=== PATIENT | male | born 1980 | race Caucasian/White ===

== ENCOUNTER 2023-12-23 10:50 | Outpatient (OUT) | payer MEDICARE, MEDICAID, SELFPAY ==
[2023-12-23 11:54] LABS: Basophils Percent Auto 0.4 % (0.2-2.0); Eosinophils Percent Auto 0.4 % (0.9-7.0); Hemoglobin 15.7 g/dL (14.0-18.0); Immature Granulocytes Abs Auto 0.05 10^3/uL (0.00-0.03); Immature Granulocytes Pct Auto 0.6 % (0.0-0.5); Lymphocytes Absolute Auto 2.1 10^3/uL (1.2-3.8); Lymphocytes Percent Auto 25.9 % (20.5-60.0); Mean Corpuscular HGB Conc 34.9 g/dL (29.9-35.2); Mean Corpuscular Hemoglobin 30.5 pg (25.9-34.0); Mean Corpuscular Volume 87.5 fL (80.0-94.0); Mean Platelet Volume 10.5 fL (9.5-13.5); Monocytes Absolute Auto 0.4 10^3/uL (0.3-0.8); Monocytes Percent Auto 5.3 % (1.7-12.0); Neutrophils Absolute Auto 5.4 10^3/uL (1.4-6.5); Neutrophils Percent Auto 67.4 % (43.0-75.0); Platelet Count 143 10^3/uL (150-450); Red Blood Count 5.14 10^6/uL (4.70-6.10); Red Cell Distribution Width 12.1 % (11.0-15.0); White Blood Count 8.1 10^3/uL (4.0-11.0)
[2023-12-23 11:58] LABS: Estimated Average Glucose 235 mg/dL; Glycohemoglobin A1C 9.8 % (4.5-6.2)
[2023-12-23 12:24] LABS: Alanine Aminotransferase 19 U/L (16-63); Albumin Globulin Ratio 0.9; Albumin Level 3.2 g/dL (3.4-5.0); Alkaline Phosphatase 75 U/L (46-116); Aspartate Amino Transferase 14 U/L (15-37); Bilirubin Direct 0.1 mg/dL (0.0-0.2); Bilirubin Total 0.4 mg/dL (0.2-1.0); Chol HDL Ratio 4.8; Cholesterol 181 mg/dL (<=200); Globulin 3.5 g/dL; Glucose 312 mg/dL (74-106); HDL Cholesterol 38 mg/dL (40-60); Thyroid Stimulating Hormone 1.668 uIU/mL (0.358-3.740); Total Protein 6.7 g/dL (6.4-8.2); Triglycerides 356 mg/dL (<=150); VLDL CHOLESTEROL 71.2 mg/dL
[2023-12-24 13:13] LABS: Carbamazepine(Tegretol),S 8.2 ug/mL (4.0-12.0)
== END 2023-12-23 10:51 | disposition home or self-care (01) ==
PROVIDERS: PCP Family Medicine; Visit Provider Psychiatry & Neurology Psychiatry
DX: F31.9 Bipolar disorder, unspecified (principal); Z79.899 Other long term (current) drug therapy
CPT/HCPCS: 36415; 80061; 80076; 80156; 82947; 83036; 84443; 85025

== ENCOUNTER 2024-12-31 12:09 | Outpatient (OUT) | payer MEDICARE, MEDICAID, SELFPAY ==
--- OUTSIDE RECORDS SUMMARY | 2024-12-31 12:14 | XMS_ITS | Encounter Summary ---
Author Organization [facility] Address [address] [place] [address] Care Team Providers Care Canopy Stringer Name Role Phone Fide Huang MD Primary Care Provider [phone] Fide Huang MD Primary Care Provider [phone] Encounter Details Date Type Department Care Team (Late st Contact Info) Description 09/10/2024 Abstract [facility] [address] [place] [address] Elizabeth Moran, DO [address] [address] Social History Tobacco Use Types Packs/Day Years Used Date Smoking Tobacco: Former Cigarettes Q uit: 2008 Smokeless Tobacco: Never Alcohol Use Standard Drinks/Week Comments Not Currently 0 (1 standard drink = 0.6 oz pur e alcohol) Caffine: 6 sodas Humiliation, Afraid, Rape, and Kick questionnair e Answer Date Recorded Within the last year, have y ou been afraid of your partner or ex-partner? No 02/27/2023 Within the last year, have y ou been humiliated or emotionally abused in other ways by your partner or ex-partner? No Within the last year, have y ou been kicked, hit, slapped, or otherwise physically hurt by your partner or ex-partner? No 02/27/2023 Within the last year, have y ou been raped or forced to have any kind of sexual activity by your partner or ex-partner? No 02/27/2023 Social Connection and Isolat ion Panel [NHANES] Answer Date Recorded In a typical week, how many times do you talk on the phone with family, friends, or neighbors? More than three times a week 02/27/2023 How often do you get togethe r with friends or relatives? More than three times a week 02/27/2023 How often do you attend chur ch or episcopalian services? Patient declined 02/27/2023 Do you belong to any clubs o r organizations such as evangelical groups, unions, fraternal or athletic groups, or school groups? No 02/27/2023 How often do you attend meet ings of the clubs or organizations you belong to? Never 02/27/2023 Are you , , di vorced, , never , or living with a partner? Living with partner 02/27/2023 AUDIT-C Answer Date Recorded Q1: How often do you have a drink containing alcohol? Never 02/27/2023 Q2: How many drinks containi ng alcohol do you have on a typical day when you are drinking? Patient does not drink Q3: How often do you have si x or more drinks on one occasion? Never 02/27/2023 Overall Financial Resource Strain (CARDIA) Answe r Date Recorded How hard is it for you to pa y for the very basics like food, housing, medical care, and heating? Not hard at all 02/27/2023 PHQ-2 Answer Date Recorded Patient Health Questionnaire-2 Score 0 09/10/2024 [facility] Questionnaire Answer Date Recorded Do you feel stress - tense, restless, nervous, or anxious, or unable to sleep at night because your mind is troubled all the time - these days? Not at all 02/27/2023 Exercise Vital Sign Answer Date Recorde d On average, how many days pe r week do you engage in moderate to strenuous exercise (like a brisk walk)? 2 days 02/27/2023 On average, how many minutes do you engage in exercise at this level? 20 min 02/27/2023 Hunger Vital Sign Answer Date Recorded Within the past 12 months, y ou worried that your food would run out before you got the money to buy more. Never true 02/28/20 23 Within the past 12 months, t he food you bought just didn't last and you didn't have money to get more. Never true 02/27/2023 PRAPARE - Transportation Answer Date Re corded In the past 12 months, has l ack of transportation kept you from medical appointments or from getting medications? No 02/14 In the past 12 months, has l ack of transportation kept you from meetings, work, or from getting things needed for daily living? No 02/27/2023 Housing Stability Vital Sign Answer Dionicio e Recorded In the last 12 months, was t here a time when you were not able to pay the mortgage or rent on time? No 02/27/2023 In the last 12 months, how many places have you lived? 1 02/27/2023 In the last 12 months, was t here a time when you did not have a steady place to sleep or slept in a fci (including now)? No 02/27/2023 Sex and Gender Information Value Date Recorded Sex Assigned at Not on file Legal Sex Male 6:42 PM EDT Gender Identity Not on file Sexual Orientation Not on file documented as of this encounter Functional Status * Over the past 2 weeks, how often have you been bothered by any of the following problems? Question Answer Date of Assessment Author Little interest or pleasure in doing things Not at all 09/10/2024 2:42 PM EDT Fide Cedillo LPN Feeling down, depressed, or hopeless Not at all 09/10/2024 2:42 PM EDT Fide Cedillo LPN Patient Health Questionnaire-2 Score 0 09/10/2024 2:42 PM EDT Arian Cedillo LPN documented as of this encounter Plan of Treatment Upcoming Encounters Date Type Department Care Team (Late st Contact Info) Description 02/02/2025 1:00 PM EDT Procedure Visit [facility] [address] [place] [phone] Ilya Saucedo, DPM [address] [place], [place] [id number] 04/08/2025 1:15 PM EDT Office Visit [facility] [address] [place] [address] Elizabeth Moran, DO [address] [facility] [address] [place] [address] documented as of this encounter Visit Diagnoses Not on filedocumented in this encounter Additional Health Concerns Assessment Noted Time PHQ-9 Depression Total Score: 2 10/03/19 24 10:00 AM EDT documented as of this encounter Care Teams Canopy Stringer Relationship Specialty Start Date End Date Fide Huang MD [address] [place], [place] [id number] PCP - General Family Medicine 10/22/22 11/09/24 Fide Huang MD [address], [place] [address] PCP - General Family Medicine 11/10/24 documented as of this encounter
--- OUTSIDE RECORDS SUMMARY | 2024-12-31 12:14 | XMS_ITS | Encounter Summary ---
Author Organization [facility] Address [address] [place] [address] Care Team Providers Care Microstrategy Reports Developer Name Role Phone Fide Huang MD Unavailable [phone] Fide Huang MD Primary Care Provider [phone] Fide Huang MD Unavailable [phone] Fide Huang MD Primary Care Provider Reason for Visit * Reason Comments Med Refill Encounter Details Date Type Department Care Team (Late st Contact Info) Description 03/23/2023 Refill [facility] [address] [place] [address] Jailyn España, [employer] [address] [address] Social History Tobacco Use Types Packs/Day Years Used Date Smoking Tobacco: Former Cigarettes Q uit: 2008 Smokeless Tobacco: Never Alcohol Use Standard Drinks/Week Comments Not Currently 0 (1 standard drink = 0.6 oz pur e alcohol) Humiliation, Afraid, Rape, and Kick questionnair e [...] 02/27/2023 How often do you attend chur or jewish services? Patient declined 02/27/2023 Do you belong to any clubs o r organizations such as restorationist groups, unions, fraternal or athletic groups, or [...] Date Recorded Patient Health Questionnaire-2 Score 0 03/06/2023 [facility] - Occupational Stress Questionnaire Answer Date Recorded [...] place to sleep or slept in a halfway (including now)? No 02/27/2023 Sex and Gender Information Value Date Recorded Sex Assigned at Not on file Legal Sex Male 6:42 PM EDT Gender Identity Not on file Sexual Orientation Not on file COVID-19 Exposure Response Date Recorded In the last 10 days, have yo u been in contact with someone who was confirmed or suspected to have Coronavirus/COVID-19? No / Unsure 02/27/2023 1:45 PM EDT documented as of this encounter Plan of Treatment Upcoming Encounters Date Type Department Care Team (Late st Contact Info) Description 02/02/2025 1:00 PM EDT Procedure Visit [facility] [address] [place] [address] Ilya Saucedo DPM [address] [place] [address] 04/08/2025 1:15 PM EDT Office Visit [facility] [address] [place] [address] Elizabeth Moran, [address] [place] [address] documented as of this encounter Visit Diagnoses Not on filedocumented in this encounter Care Teams Microstrategy Reports Developer Relationship Specialty Start Date End Date Fide Huang MD [address] [facility] [place] [address] [facility] 08/20/24 Fide Huang MD [address] [facility] [place] [address] PCP - General Family Medicine 10/22/22 11/09/24 Fide Huang MD [address] [facility] [place], [place] [id number] PCP - [facility] 06/16/24 08/13/24 Fide Huang MD [address] [facility] [place] [id number] PCP - General Family Medicine 11/10/24 documented as of this encounter
--- OUTSIDE RECORDS SUMMARY | 2024-12-31 12:14 | XMS_ITS | Encounter Summary ---
Author Organization [facility] Address [address] [place] [address] Care Team Providers Care Porcelain Slusher Name Role Phone Fide Huang MD Unavailable [phone] Fide Huang MD Primary Care Provider [phone] Fide Huang MD Unavailable [phone] Fide Huang MD Primary Care Provider [phone] Encounter Details Date Type Department Care Team (Late st Contact Info) Description 09/15/2023 Orders Only [facility] [address] [facility] [address] [place] [address] Elizabeth Moran DO [address] [facility] [address] [place] [address] Social History Tobacco Use Types Packs/Day Years [...] week 02/27/2023 How often do you attend [facility] or anabaptism services? Patient declined 02/27/2023 Do you belong to any clubs o r organizations such as gnosticist groups, unions, fraternal or athletic groups, or [...] Answer Date Recorded Patient Health Questionnaire-2 Score 1 04/11/2023 [facility] - Occupational Stress [...] place to sleep or slept in a penitentiary (including now)? No 02/27/2023 Sex and Gender Information Value Date Recorded Sex Assigned at Not on file Legal Sex Male 6:42 PM EDT Gender Identity Not on file Sexual Orientation Not on file documented as of this encounter Plan of Treatment Upcoming Encounters Date Type Department Care Team (Late st Contact Info) Description 02/02/2025 1:00 PM EDT Procedure Visit [facility] [address] [place] [phone] Ilya Saucedo, DPM [address] [place] [address] 04/08/2025 1:15 PM EDT Office Visit [facility] [address] [place] [address] Elizabeth oMran, [address] [place] [address] documented as of this encounter Procedures Procedure Name Priority Date/Time Associated Diagnosis Comments DIABETIC RETINOPATHY SCREENING - OU - BOTH EYES Routine 09/12/2023 1:24 PM EDT documented in this encounter Results * (ABNORMAL) Diabetic Retinopathy Screening - OU - Both Eyes (09/12/2023 1:24 PM EDT) Anatomical Region Laterality Modality Head Other us Elizabeth Moran DO OPHTH PHOTOGRAPHY Final Re sult documented in this encounter Visit Diagnoses Not on filedocumented in this encounter Additional Health Concerns Assessment Noted Time PHQ-9 Depression Total Score: 4 04/11/20 23 12:57 PM EDT documented as of this encounter Care Teams Porcelain Slusher Relationship Specialty Start Date End Date Fide Huang MD [address] [facility] [place] [address] PCP - [facility] 07/17/22 08/20/24 Fide Huang MD [address] [facility] [place] [address] PCP - General Family Medicine 10/22/22 11/09/24 Fide Huang MD [address] [facility] [place] [address] PCP - [facility] 06/16/24 08/13/24 Fide Huang MD [address] [facility] [place] [address] PCP - General Family Medicine 11/10/24 documented as of this encounter
--- OUTSIDE RECORDS SUMMARY | 2024-12-31 12:14 | XMS_ITS | Encounter Summary ---
Author Organization [facility] Address [address] [place] [address] Care Team Providers Care Hog Man Name Role Phone Fide Huang MD Unavailable [phone] Fide Huang MD Primary Care Provider [phone] Fide Huang MD Unavailable [phone] Fide Huang MD Primary Care Provider [phone] Reason for Visit * Reason Comments Med Refill Encounter Details Date Type Department Care Team (Late st Contact Info) Description 04/01/2024 Refill [facility] [address] [facility] 230 [place] [address] Elizabeth Moran, [address] [facility] [address] [place] [address] Type 2 diabetes mellitus with diabetic autonomic neuropathy, with long-term current use of insulin ([facility]) Social History Tobacco Use Types Packs/Day Years Used Date Smoking Tobacco: Former Cigarettes Q uit: 2007 Smokeless Tobacco: Never Alcohol Use Standard Drinks/Week [...] How often do you attend chur or episcopal services? Patient declined 02/27/2023 Do you belong to any clubs o r organizations such as pentecostalism groups, unions, fraSecond Sight or athletic groups, or school groups? No [...] Date Recorded Patient Health Questionnaire-2 Score 0 03/12/2024 [facility] Occupat ional Health - Occupational Stress [...] place to sleep or slept in a usp (including now)? No 02/27/2023 Sex and Gender Information Value Date Recorded Sex Assigned at Not on file Legal Sex Male 6:42 PM EDT Gender Identity Not on file Sexual Orientation Not on file documented as of this encounter Plan of Treatment Upcoming Encounters Date Type Department Care Team (Late st Contact Info) Description 02/02/2025 1:00 PM EDT Procedure Visit [facility] [address] [place] [phone] Ilya Saucedo, MECCA [address] [place] [address] 04/08/2025 1:15 PM EDT Office Visit [facility] [address] [place] [address] Elizabeth Moran DO [address] [place] [address] documented as of this encounter Visit Diagnoses Diagnosis Type 2 diabetes mellitus with diabetic autonomic neuropathy, with long-term current use of insulin (HCC) documented in this encounter Additional Health Concerns Assessment Noted Time PHQ-9 Depression Total Score: 2 10/03/19 24 10:00 AM EDT documented as of this encounter Care Teams Hog Man Relationship Specialty Start Date End Date Fide Huang MD [address] [facility] [place] [address] PCP - [facility] 07/17/22 08/20/24 Fide Huang MD [address] [facility] [place] [address] PCP - General Family Medicine 10/22/22 11/09/24 Fide Huang MD [address] [facility] [place] [address] PCP - [facility] 06/16/24 08/13/24 Fide Huang MD [address] [facility] [place] [address] PCP - General Family Medicine 11/10/24 documented as of this encounter
--- OUTSIDE RECORDS SUMMARY | 2024-12-31 12:14 | XMS_ITS | Clinical Summary ---
Author Organization [facility] Address [id number] [address] [place] [address] Care Team Providers Care Fiscal Clerk Name Role Phone Fide Huang MD Primary Care Provider [phone] Allergies Active Allergy Reactions Criticality Noted Date Comments Amoxicillin Rash Low 01/25/2019 Metformin Diarrhea 03/06/2023 Medications busPIRone (BUSPAR) 15 mg tablet Take 1 tablet (15 mg total) by mouth in the morning and 1 tablet (15 mg total) before bedtime. Active carBAMazepine (TEGretol) 200 mg tablet Take 1 tablet (200 mg total) by mouth in the morning and 1 tablet (200 mg total) before bedtime. Active citalopram (CeleXA) 40 mg tablet Take 1 tablet (40 mg total) by mouth in the morning. Active fenofibrate (LOFIBRA) 160 mg tablet Take 1 tablet (160 mg total) by mouth in the morning. Active HumuLIN R U-500, Conc, Kwikpen injection INJECT 170 UNITS SUBCUTANEOUSLY WITH BREAKFAST and 80 UNITS WITH dinner Active lisinopril-hy droCHLOROthia zide (PRINZIDE,ZES TORETIC) 20-12.5 mg per tablet Take 1 tablet by mouth in the morning. Active metoprolol tartrate (LOPRESSOR) 50 mg tablet Take 1 tablet (50 mg total) by mouth in the morning and 1 tablet (50 mg total) before bedtime. Active risperiDONE (RisperDAL) 4 mg tablet Take 1 tablet (4 mg total) by mouth. Active OZEMPIC 1 mg/dose (4 mg/3 mL) pen injector INJECT 1 mg SUBCUTANEOUSLY ONCE A WEEK Active OZEMPIC 2 mg/dose (8 mg/3 mL) pen injector Inject 2 mg under the skin. Active simvastatin (ZOCOR) 40 mg tablet Take 1 tablet (40 mg total) by mouth. Active tadalafiL (CIALIS) 10 MG tablet Take 1 tablet (10 mg total) by mouth as needed. 023 Active traZODone (DESYREL) 100 mg tablet Take 2 tablets (200 mg total) by mouth. Active desmopressin (DDAVP) 0.2 mg tablet Take 3 tablets (600 mcg total) by mouth nightly. 90 tablet 025 Active desmopressin (DDAVP) 0.2 mg tablet TAKE 3 TABLETS BY MOUTH IN THE MORNING 90 tablet 025 2024 Discontinued(R eorder) desmopressin (DDAVP) 0.2 mg tablet Take 1 tablet (200 mcg total) by mouth nightly. TAKE 3 TABLETS BY MOUTH IN THE MORNING 90 tablet 025 2024 Discontinued Active Problems Problem Noted Date Diagnosed Date Nocturnal enuresis 11/26/2023 Overview (11/26/2023): 12/19/15: lifelong nocturnal enuresis. Successfully treated with DDAVP 0.6 mg. Refill given. He is planning to get further refills in the future with Dr Huang. If he has worsened urinary symptoms I would be happy to see him again 11/26/23: Symptoms stable with DDAVP 0.6mg. Sodium stable. Assessment & Plan (11/26/2023 2:43 PM EDT): His PCP would like us to manage his refills. We will see him back in 1 year or sooner if any problems Encounters Date Type Department Care Team Description 12/14/2024 Refill [facility] [address] [place] [address] Trae Sanchez MD 12/14/2024 Orders Only [facility] [address] [place] [address] Trae Sanchez MD 12/14/2024 Telephone [facility] [address] [place] [address] Trae Sanchez MD 11/29/2024 Refill [facility] [address] [address] [place] [address] Debora Olivas PA from Last 3 Months Family History Relation Name Status Comments Brother Alive Father Alive Mother Alive Social History Tobacco Use Types Packs/Day Years Used Date Smoking Tobacco: Former Cigarettes Q uit: 2007 Tobacco Cessation:Counseling Given: No Alcohol Use Standard Drinks/Week Comments Defer 0 (1 standard drink = 0.6 oz pur e alcohol) Childcare Answer Date Recorded Childcare Unknown 11/25/2018 Employment Answer Date Recorded Employment Unknown 11/25/2018 Hunger Screening Answer Date Recorded Within the past 12 months we worried whether our food would run out before we got money to buy more. Never True 11/26/2023 Within the past 12 months th e food we bought just didn't last and we didn't have money to get more. Never True 11/26/2023 Purpose - Life Answer Date Recorded Purpose and direction in life Unknown Sex and Gender Information Value Date Recorded Sex Assigned at Not on file Legal Sex Male 11:39 AM EDT Gender Identity Not on file Sexual Orientation Not on file Last Filed Vital Signs Vital Sign Reading Time Taken Comments Blood Pressure 112/71 11/26/2023 2:21 PM EDT Pulse 69 11/26/2023 2:21 PM EDT Temperature - - Respiratory Rate - - Oxygen Saturation - - Inhaled Oxygen Concentration - - Weight 181.9 kg (401 lb) 11/26/2023 2:21 PM EDT Height 182.9 cm (6') 11/26/2023 2:21 PM EDT Body Mass Index 54.39 11/26/2023 2:21 PM EDT Plan of Treatment Health Maintenance Due Date Last Done Comments Depression Screening 1990 Adult BMI Screening 11/25/2024 11/26/2023 Tobacco Screening 11/25/2024 11/26/2023 Influenza Vaccine 02/14/2025 04/11/2023, , 06/06/2020, Additional history exists DTaP,Tdap and Td Vaccines (2 - Td or Tdap) 12/09/2027 12/08/2017 Medical Devices Not on file Insurance MEDICAID [place] [employer] MEDICARE Care Teams Fiscal Clerk Relationship Specialty Start Date End Date Fide Huang MD [address] [place] [address] PCP - General Family Medicine 02/24/17
--- OUTSIDE RECORDS SUMMARY | 2024-12-31 12:14 | XMS_ITS | Encounter Summary ---
Author Organization [facility] Address [address] [place] [address] Care Team Providers Care Store Stocker Name Role Phone Fide Huang MD Unavailable [phone] Fide Huang MD Primary Care Provider [phone] Fide Huang MD Unavailable [phone] Fide Huang MD Primary Care Provider [phone] Encounter Details Date Type Department Care Team (Late st Contact Info) Description 09/16/2023 Orders Only [facility] [address] [place] [address] Jailyn España NP [address] [address] Social History Tobacco Use Types [...] week 02/27/2023 How often do you attend [facility] or yazdanism services? Patient declined 02/27/2023 Do you belong to any clubs o r organizations such as hindu groups, unions, fraternal or athletic groups, or [...] Recorded Patient Health Questionnaire-2 Score 1 04/11/2023 [facility] Occupat ional Health - Occupational [...] money to buy more. Never true 02/28/20 Within the past 12 months, t he [...] place to sleep or slept in a half-way (including now)? No 02/27/2023 Sex and Gender Information Value Date Recorded Sex Assigned at Not on file Legal Sex Male 6:42 PM EDT Gender Identity Not on file Sexual Orientation Not on file documented as of this encounter Plan of Treatment Upcoming Encounters Date Type Department Care Team (Late st Contact Info) Description 02/02/2025 1:00 PM EDT Procedure Visit [facility] [address] [place] [address] Ilya Saucedo, DPM [address] [place] [address] 04/08/2025 1:15 PM EDT Office Visit [facility] [address] [place] [address] Elizabeth Moran, [address] [place] [address] documented as of this encounter Visit Diagnoses Not on filedocumented in this encounter Additional Health Concerns Assessment Noted Time PHQ-9 Depression Total Score: 4 04/11/20 23 12:57 PM EDT documented as of this encounter Care Teams Store Stocker Relationship Specialty Start Date End Date Fide Huang MD [address] [facility] [place] [address] [facility] 08/20/24 Fide Huang MD [address] [facility] [place] [address] PCP - General Family Medicine 10/22/22 11/09/24 Fide Huang MD [address] [facility] [address] [place], [place] [id number] PCP - [facility] 06/16/24 08/13/24 Fide Huang MD [address] [facility] [place] [address] PCP - General Family Medicine 11/10/24 documented as of this encounter
--- OUTSIDE RECORDS SUMMARY | 2024-12-31 12:14 | XMS_ITS | Encounter Summary ---
Author Organization [facility] Address [address] [place] [address] Care Team Providers Care Mechanic Foreman Name Role Phone Fide Huang MD Primary Care Provider [phone] Fide Huang MD Primary Care Provider [phone] Encounter Details Date Type Department Care Team (Late st Contact Info) Description 11/01/2024 [facility] [address] [place] [phone] Ilya Saucedo, DPM [address] [place], [place] [id number] Social History Tobacco Use Types Packs/Day Years [...] often do you attend chur ch or temple services? Patient declined 02/27/2023 Do you belong to any clubs o r organizations such as advent groups, unions, fraternal or athletic groups, or [...] Recorded Patient Health Questionnaire-2 Score 0 09/10/2024 [facility] - Occupational Stress Questionnaire Answer Date Recorded [...] the money to buy more. Never true 09/14/20 23 Within the past 12 months, t [...] place to sleep or slept in a long term (including now)? No 02/27/2023 Sex and Gender Information Value Date Recorded Sex Assigned at Not on file Legal Sex Male 6:42 PM EDT Gender Identity Not on file Sexual Orientation Not on file documented as of this encounter Plan of Treatment Upcoming Encounters Date Type Department Care Team (Late st Contact Info) Description 02/02/2025 1:00 PM EDT Procedure Visit [facility] [address] [place] [address] Ilya Saucedo, DPM [address] [place] [address] 04/08/2025 1:15 PM EDT Office Visit [facility] [address] [place] [address] Elizabeth Moran, [address] [place] [address] documented as of this encounter Visit Diagnoses Not on filedocumented in this encounter Additional Health Concerns Assessment Noted Time PHQ-9 Depression Total Score: 2 10/03/19 24 10:00 AM EDT documented as of this encounter Care Teams Mechanic Foreman Relationship Specialty Start Date End Date Fide Huang MD [address] [address] PCP - General Family Medicine 10/22/22 11/09/24 Fide Huang MD [address] [place], [place] [id number] PCP - General Family Medicine 11/10/24 documented as of this encounter
--- OUTSIDE RECORDS SUMMARY | 2024-12-31 12:14 | XMS_ITS | Encounter Summary ---
Author Organization [facility] Address [address] [place] [address] Care Team Providers Care Lube Attendant Name Role Phone Fide Huang MD Unavailable [phone] Fide Huang MD Primary Care Provider [phone] Fide Huang MD Unavailable [phone] Fide Huang MD Primary Care Provider [phone] Encounter Details Date Type Department Care Team (Late st Contact Info) Description 11/20/2023 Abstract [facility] [address] [facility] [address] [place] [address] Elizabeth Moran DO [address] [facility] [address] [place] [address] Social History Tobacco Use Types [...] 02/27/2023 How often do you attend [facility] or taoist services? Patient declined 02/27/2023 Do you belong to any clubs o r organizations such as caodaism groups, unions, fraternal or athletic groups, or [...] Date Recorded Patient Health Questionnaire-2 Score 0 10/03/2023 [facility] - [...] place to sleep or slept in a assisted (including now)? No 02/27/2023 Sex and Gender Information Value Date Recorded Sex Assigned at Not on file Legal Sex Male 6:42 PM EDT Gender Identity Not on file Sexual Orientation Not on file documented as of this encounter Plan of Treatment Upcoming Encounters Date Type Department Care Team (Late st Contact Info) Description 02/02/2025 1:00 PM EDT Procedure Visit [facility] [address] [place] [phone] Ilya Saucedo, DPM [address] [place] [address] 04/08/2025 1:15 PM EDT Office Visit [facility] [address] [place] [address] Elizabeth Moran, [address] [place] [address] documented as of this encounter Visit Diagnoses Not on filedocumented in this encounter Additional Health Concerns Assessment Noted Time PHQ-9 Depression Total Score: 2 04/19/20 24 10:00 AM EDT documented as of this encounter Care Teams Lube Attendant Relationship Specialty Start Date End Date Fide Huang MD [address] [facility] [place] [address] [facility] 07/17/22 08/20/24 Fide Huang MD [address] [facility] [place] [address] PCP - General Family Medicine 10/22/22 11/09/24 Fide Huang MD [address] [facility] [address] [place], [place] [phone] PCP - [facility] 06/16/24 08/13/24 Fide Huang MD [address] [facility] [place] [address] PCP - General Family Medicine 11/10/24 documented as of this encounter
--- OUTSIDE RECORDS SUMMARY | 2024-12-31 12:14 | XMS_ITS | Encounter Summary ---
Author Organization [facility] Address [address] [place] [address] Care Team Providers Care Fine Grade Operator Name Role Phone Fide Huang MD Unavailable Fide Huang MD Primary Care Provider Fide Huang MD Unavailable [phone] Fide Huang MD Primary Care Provider [phone] Encounter Details Date Type Department Care Team (Late st Contact Info) Description 11/21/2022 Abstract [facility] [address] [place] [phone] Fide Huang MD [address] [place], [place] [phone] Social History Tobacco Use Types Packs/Day Years Used Date Smoking Tobacco: Never Assessed Sex and Gender Information Value Date Recorded Sex Assigned at Not on file Legal Sex Male 6:42 PM EDT Gender Identity Not on file Sexual Orientation Not on file documented as of this encounter Plan of Treatment Upcoming Encounters Date Type Department Care Team (Late st Contact Info) Description 02/02/2025 1:00 PM EDT Procedure Visit [facility] [address] [place] [phone] Ilya Saucedo, DPM [address] [place] [address] 04/08/2025 1:15 PM EDT Office Visit [facility] [address] [place] [phone] Elizabeth Moran, [address] [place] [address] documented as of this encounter Visit Diagnoses Not on filedocumented in this encounter Care Teams Fine Grade Operator Relationship Specialty Start Date End Date Fide Huang MD [address] [facility] [place] [address] PCP - [employer] 07/17/22 08/20/24 Fide Huang MD [address] [facility] [place] [address] PCP - General Family Medicine 10/22/22 11/09/24 Fide Huang MD [address] [facility] [place] [address] PCP - [facility] 06/16/24 08/13/24 Fide Huang MD [address] [place] [address] PCP - General Family Medicine 11/10/24 documented as of this encounter
--- OUTSIDE RECORDS SUMMARY | 2024-12-31 12:14 | XMS_ITS | Encounter Summary ---
Author Organization [facility] Address [address] [place] [address] Care Team Providers Care City Bus Driver Name Role Phone Fide Huang MD Primary Care Provider [phone] Reason for Visit * Reason Comments Med Refill Encounter Details Date Type Department Care Team (Late st Contact Info) Description 12/28/2024 Refill [facility] [address] [place] [address] Madison Alvarez NP [address] [place] [address] Primary hypertension Social History Tobacco Use Types Packs/Day Years [...] often do you attend chur ch or lutheran services? Patient declined 02/27/2023 Do you belong to any clubs o r organizations such as mu-ism groups, unions, fraternal or athletic groups, or [...] Date Recorded Patient Health Questionnaire-2 Score 0 12/10/2024 [facility] Questionnaire Answer Date [...] PM EDT Procedure Visit [facility] [address] [place] [phone] Ilya Saucedo, DPM [address] [place] [address] 04/08/2025 1:15 PM EDT Office Visit [facility] [address] [place] [address] Elizabeth Moran, [address] [place] [address] documented as of this encounter Visit Diagnoses Diagnosis Primary hypertension Unspecified essential hypertension documented in this encounter Additional Health Concerns Assessment Noted Time PHQ-9 Depression Total Score: 2 10/03/19 24 10:00 AM EDT documented as of this encounter Care Teams City Bus Driver Relationship Specialty Start Date End Date Fide Huang MD [address] [place] [address] PCP - General Family Medicine 11/10/24 documented as of this encounter
--- OUTSIDE RECORDS SUMMARY | 2024-12-31 12:14 | XMS_ITS | Clinical Summary ---
Author Organization [facility] Healthcare Address [address] [place] [address] Care Team Providers Care Final Inspector Balance Wheel Name Role Phone Fide Huang MD Primary Care Provider [phone] Allergies Active Allergy Reactions Criticality Noted Date Comments Amoxicillin Rash Low 01/25/2019 Metformin Diarrhea 03/06/2023 Medications buPROPion XL (Wellbutrin XL) 300 MG 24 hr tablet Take 300 mg by mouth Daily Active busPIRone (Buspar) 15 MG tablet Take 15 mg by mouth in the morning and 15 mg before bedtime. Active carBAMazepine (TEGretol) 200 MG tablet 023 Active citalopram (CeleXA) 40 MG tablet Take 40 mg by mouth Daily Active risperiDONE (RisperDAL) 4 MG tablet Take 4 mg by mouth at bedtime Active traZODone (Desyrel) 100 MG tablet Take 200 mg by mouth at bedtime Active desmopressin (DDAVP) 0.2 MG tabletIndications: Nocturnal enuresis Take 3 tablets (0.6 mg) by mouth Daily 90 tablet 024 Active Continuous Glucose Sensor (Dexcom G7 Sensor) miscIndications:Ty pe 2 diabetes mellitus with both eyes affected by mild nonproliferative retinopathy without macular edema, with long-term current use of insulin (HCC) Inject 1 Device under the skin See administration instructions Change every 10 days 9 each 3 024 Active simvastatin (Zocor) 40 MG tabletIndications: Elevated triglycerides with high cholesterol Take 1 tablet (40 mg) by mouth at bedtime 90 tablet 1 024 Active lisinopril-hydroCH LOROthiazide 20-12.5 MG tabletIndications: Primary hypertension Take 1 tablet by mouth Daily 90 tablet 1 024 Active insulin pen needle (BD Pen Needle Doreen U/F) 32G x 4 mm miscIndications:Ty pe 2 diabetes mellitus with both eyes affected by mild nonproliferative retinopathy without macular edema, with long-term current use of insulin ([facility]) Use as instructed 100 each 3 025 Active Semaglutide, 2 MG/DOSE, (Ozempic, 2 MG/DOSE,) 8 MG/3ML solution pen-injectorIndica tions:Type 2 diabetes mellitus with both eyes affected by mild nonproliferative retinopathy without macular edema, with long-term current use of insulin ([facility]) INJECT 2 (TWO) mg subcutaneously EVERY WEEK 9 mL 1 025 Active fenofibrate (Triglide) 160 MG tabletIndications: Elevated triglycerides with high cholesterol TAKE 1 TABLET BY MOUTH DAILY 90 tablet 025 Active insulin aspart FlexPen (NovoLOG) 100 UNIT/ML penIndications:Typ e 2 diabetes mellitus with both eyes affected by mild nonproliferative retinopathy without macular edema, with long-term current use of insulin ([facility]) 30 units qAC plus correction 2:30 > 150 mg/dl (max daily 100 units) 30 mL 3 025 Active insulin degludec (Tresiba FlexTouch) 200 UNIT/ML injectionIndicatio ns:Type 2 diabetes mellitus with both eyes affected by mild nonproliferative retinopathy without macular edema, with long-term current use of insulin ([facility]) Inject 70 Units under the skin Daily 9 mL 1 025 Active metoprolol tartrate (Lopressor) 50 MG tabletIndications: Primary hypertension TAKE 1 TABLET BY MOUTH TWICE DAILY 180 tablet 025 Active metoprolol tartrate (Lopressor) 50 MG tabletIndications: Primary hypertension TAKE 1 TABLET BY MOUTH TWICE DAILY 180 tablet 025 12/28 Discontinued insulin degludec (Tresiba FlexTouch) 200 UNIT/ML injectionIndicatio ns:Type 2 diabetes mellitus with both eyes affected by mild nonproliferative retinopathy without macular edema, with long-term current use of insulin ([facility]) Inject 70 Units under the skin Daily 9 mL 1 025 12/10 Discontinued( Reorder) Active Problems Problem Noted Date Diagnosed Date Essential hypertension 10/03/2023 Class 3 severe obesity due t o excess calories with serious comorbidity and body mass index (BMI) of 50.0 to 59.9 in adult 03/07/2023 Antisocial personality disorder 03/06/2023 Bipolar 1 disorder 03/06/2023 Elevated triglycerides with high cholesterol Erectile dysfunction 03/06/2023 Hearing loss, bilateral 03/06/2023 Nocturnal enuresis 03/06/2023 Pure hypercholesterolemia 03/06/2023 Type 2 diabetes mellitus wit h both eyes affected by mild nonproliferative retinopathy without macular edema, with long-term current use of insulin 03/06/2023 Assessment & Plan (12/10/2024 10:27 AM EDT): During the appointment today all pertinent labs, imaging, health maintenance, and glucose readings were reviewed. Encouraged to check blood glucose throughout the day with some fasting and some PP readings. They are to bring their glucose meter/cgm in to all appointments. All of the patients questions, treatment options, and current care plan and goals were discussed. A copy of this along with pertinent instructions were given to the patient at the end of the appointment. The patient voices understanding of all of this and is to call in between appointments if they have any problems or questions. Costa Cook Jr control is stable overall. , Will stay on current medications. , The patient is wearing their cgm on a daily basis and making decisions in regards to adjusting insulin daily as well for at least the last 60 days , Instructions given today include: Insulin instructions and Dietary education Assessment & Plan (09/12/2024 7:43 PM EDT): During the appointment today all pertinent labs, imaging, health maintenance, and glucose readings were reviewed. Encouraged to check blood glucose throughout the day with some fasting and some PP readings. They are to bring their glucose meter/cgm in to all appointments. All of the patients questions, treatment options, and current care plan and goals were discussed. A copy of this along with pertinent instructions were given to the patient at the end of the appointment. The patient voices understanding of all of this and is to call in between appointments if they have any problems or questions. Costa Cook Jr is doing very well and encouraged on this. , The patient is wearing their cgm on a daily basis and making decisions in regards to adjusting insulin daily as well for at least the last 60 days , Discussed dietary changes at length. Encouraged to limit simple carbs and focus more on healthy protein/fat with all meals and snacks. They should also avoid any sugary drinks. , Instructions given today include: Insulin instructions and Dietary education. Will decrease insulin at breakfast and lunch. Assessment & Plan (06/11/2024 2:20 PM EST): During the appointment today all pertinent labs, imaging, health maintenance, and glucose readings were reviewed. Encouraged to check blood glucose throughout the day with some fasting and some PP readings. They are to bring their glucose meter/cgm in to all appointments. All of the patients questions, treatment options, and current care plan and goals were discussed. A copy of this along with pertinent instructions were given to the patient at the end of the appointment. The patient voices understanding of all of this and is to call in between appointments if they have any problems or questions. Costa Cook Jr is struggling to gain control of their diabetes. I am very concerned for diabetes related complications. , The patient is wearing their cgm on a daily basis and making decisions in regards to adjusting insulin daily as well for at least the last 60 days , Discussed dietary changes at length. Encouraged to limit simple carbs and focus more on healthy protein/fat with all meals and snacks. They should also avoid any sugary drinks. , Instructions given today include: Insulin instructions and Dietary education. Will increase his insulin to try and bring down his readings. Hoping he is able to increase his activity as this usually helps him significantly as well. Assessment & Plan (03/13/2024 10:55 AM EDT): During the appointment today all pertinent labs, imaging, health maintenance, and glucose readings were reviewed. Encouraged to check blood glucose throughout the day with some fasting and some PP readings. They are to bring their glucose meter/cgm in to all appointments. All of the patients questions, treatment options, and current care plan and goals were discussed. A copy of this along with pertinent instructions were given to the patient at the end of the appointment. The patient voices understanding of all of this and is to call in between appointments if they have any problems or questions. Costa Cook Jr is struggling to gain control of their diabetes. I am very concerned for diabetes related complications. , The patient is wearing their cgm on a daily basis and making decisions in regards to adjusting insulin daily as well for at least the last 60 days , Discussed dietary changes at length. Encouraged to limit simple carbs and focus more on healthy protein/fat with all meals and snacks. They should also avoid any sugary drinks. , Instructed on the importance of taking insulin before eating. If it has been more than 30-45 min since eating they should not give the meal dose but should just give a correction insulin dose. , Instructed on the proper insulin injection technique either in the abdomen, upper outer thigh, or back of the arm. They are to rotate injection sites to prevent scar tissue. , Instructions given today include: Hypoglycemia management, Insulin instructions, and Dietary education. Will stop U-500 insulin as the profile of this insulin is no longer working for him. Will change back to basal/bolus insulin. Assessment & Plan (11/18/2023 4:05 PM EDT): During the appointment today all pertinent labs, imaging, health maintenance, and glucose readings were reviewed. Encouraged to check blood glucose throughout the day with some fasting and some PP readings. They are to bring their glucose meter/cgm in to all appointments. All of the patients questions, treatment options, and current care plan and goals were discussed. A copy of this along with pertinent instructions were given to the patient at the end of the appointment. The patient voices understanding of all of this and is to call in between appointments if they have any problems or questions. Costa Cook Jr is struggling to gain control of their diabetes. I am very concerned for diabetes related complications. , The patient is wearing their cgm on a daily basis and making decisions in regards to adjusting insulin daily as well for at least the last 60 days , Discussed dietary changes at length. Encouraged to limit simple carbs and focus more on healthy protein/fat with all meals and snacks. They should also avoid any sugary drinks. , Instructed on the importance of taking insulin before eating. If it has been more than 30-45 min since eating they should not give the meal dose but should just give a correction insulin dose. , Instructions given today include: Insulin instructions and Dietary education. Will increase insulin at breakfast and decrease at dinner. He needs to take insulin in the am before breakfast. Assessment & Plan (03/07/2023 8:21 AM EDT): During the appointment today all pertinent labs, imaging, health maintenance, and glucose readings were reviewed. Encouraged to check blood glucose throughout the day with some fasting and some PP readings. They are to bring their glucose meter/cgm in to all appointments. All of the patients questions, treatment options, and current care plan and goals were discussed. A copy of this along with pertinent instructions were given to the patient at the end of the appointment. The patient voices understanding of all of this and is to call in between appointments if they have any problems or questions. Costa Cook Jr is struggling to gain control of their diabetes. I am very concerned for diabetes related complications. , The patient is wearing their cgm on a daily basis and making decisions in regards to adjusting insulin daily as well for at least the last 60 days , Instructed on the importance of taking insulin before eating. If it has been more than 30-45 min since eating they should not give the meal dose but should just give a correction insulin dose. , Instructed on the proper insulin injection technique either in the abdomen, upper outer thigh, or back of the arm. They are to rotate injection sites to prevent scar tissue. , Instructions given today include: Insulin instructions and Dietary education. Concern for areas of lipohypertrophy and he is to work on rotating injection sites. Will increase insulin to help improve control. Resolved Problems Problem Noted Date Diagnosed Date Resolved Date Type 2 diabetes mellitus wit h hyperglycemia, with long-term current use of insulin 03/13/2024 Long-term insulin use 03/07/20232023 Diabetic renal disease 03/06/202303/07 Hypoglycemia associated with diabetes 03/06/2023 10/03/2023 Encounters Date Type Department Care Team Description 12/30/2024 Abstract [facility] [address] [place] [address] Ilya Saucedo DPM 12/30/2024 Telephone [facility] [address] [place] [phone] Ilya Saucedo DPM DM Shoes (Likes Shoes Canc Check) 12/28/2024 Refill [facility] [address] [facility] [place] [phone] Madison Alvarez NP Primary hypertension 12/14/2024 11:00 AM EDT Office Visit [facility] [address] [place] [phone] Ilya Saucedo DPM Diabetic polyneuropathy associated with type 2 diabetes mellitus (HCC) (Primary Dx); Corns and callosities; Hammer toes of both feet; Equinus contracture of left ankle; Equinus contracture of right ankle 12/14/2024 Telephone [facility] [address] [facility] [place] [address] Fide Huang MD referral 12/14/2024 Bamboo flowsheet [facility] [address] [place] [phone] Ilya Saucedo DPM 12/14/2024 Travel 12/10/2024 10:15 AM EDT Office Visit [facility] [address] [place] [address] Elizabeth Moran, Class 3 severe obesity due to excess calories with serious comorbidity and body mass index (BMI) of 50.0 to 59.9 in adult ([facility]) (Primary Dx); Type 2 diabetes mellitus with both eyes affected by mild nonproliferative retinopathy without macular edema, with long-term current use of insulin ([facility]) 12/10/2024 Refill [facility] [address] [place] [address] Elizabeth Moran, DO Type 2 diabetes mellitus with both eyes affected by mild nonproliferative retinopathy without macular edema, with long-term current use of insulin ([facility]) 12/10/2024 Bamboo flowsheet [facility] [address] [place] [phone] Elizabeth Moran, 12/10/2024 Travel 11/24/2024 9:00 AM EDT Office Visit [facility] [address] [place] [phone] Ilya Saucedo DPM Diabetic polyneuropathy associated with type 2 diabetes mellitus (HCC) (Primary Dx); Corns and callosities; Hammer toes of both feet; Equinus contracture of left ankle; Equinus contracture of right ankle 11/24/2024 Bamboo flowsheet [facility] [place] [address] [place] [address] Ilya Saucedo DPM 11/24/2024 Travel 11/23/2024 Travel 11/09/2024 Telephone [facility] [address] [facility] [place] [phone] Fide Huang MD 11/01/2024 2:30 PM EDT Office Visit [facility] [address] [place] [address] Ilya Saucedo DPM Diabetic polyneuropathy associated with type 2 diabetes mellitus (HCC) (Primary Dx); Corns and callosities; Hammer toes of both feet; Equinus contracture of left ankle; Equinus contracture of right ankle 11/01/2024 Abstract [facility] [address] [place] [address] Ilya Saucedo DPM 11/01/2024 Bamboo flowsheet [facility] [address] [place] [address] Ilya Saucedo DPM 11/01/2024 Travel 10/30/2024 Refill [facility] [address] [place] [phone] Elizabeth Moran, Type 2 diabetes mellitus with both eyes affected by mild nonproliferative retinopathy without macular edema, with long-term current use of insulin (HCC) 10/29/2024 Refill [facility] [address] [facility] [address] [place] [address] Elizabeth Moran, DO Type 2 diabetes mellitus with both eyes affected by mild nonproliferative retinopathy without macular edema, with long-term current use of insulin ([facility]) 10/29/2024 Refill [facility] [address] [place] [address] Jailyn España NP Elevated triglycerides with high cholesterol 10/25/2024 Abstract [facility] [address] [place] [address] Elizabeth Moran, DO 10/16/2024 Refill [facility] [address] [facility] [address] [place] [address] Elizabeth Moran, DO Type 2 diabetes mellitus with both eyes affected by mild nonproliferative retinopathy without macular edema, with long-term current use of insulin ([facility]) 10/13/2024 Telephone [facility] [address] [facility] [address] [place] [address] Elen Oro LPN Med Refill from Last 3 Months Immunizations Immunization Administration Dates Next Due Influenza Whole 06/28/2013 Influenza, injectable, quadrivalent 03/24/2018,0 02/21/2017 Influenza, injectable, quadr ivalent, preservative free 04/11/2023,04/24/2021,06/06/2020 Influenza, seasonal, injecta ble, preservative free 05/08/2015 Pneumococcal Polysaccharide PPSV23 05/27/2013 Tdap 12/08/2017 Family History Medical History Relation Name Comments Alcohol abuse Brother Cruz coko Learning disabilities Daughter Ramya Depression Father Costa sr Diabetes Father Costa sr Hypertension Father Costa sr COPD Mother Fransisca cook Depression Mother Fransisca cook Diabetes Mother Fransisca cook Hypertension Mother Fransisca cook Relation Name Status Comments Brother Cruz cook Alive Daughter Ramya Alive Father Costa sr Alive Mother Fransisca strongach Alive Social History Tobacco Use Types Packs/Day Years Used Date Smoking Tobacco: Former Cigarettes Q uit: 2008 Smokeless Tobacco: Never Tobacco Cessation:Counseling Given: Not Answered Alcohol Use Standard Drinks/Week Comments Not Currently [...] How often do you attend chur or scientologist services? Patient declined 02/27/2023 Do you belong to any clubs o r organizations such as buddhist groups, unions, fraternal or athletic groups, or [...] Recorded Patient Health Questionnaire-2 Score 0 12/10/2024 [facility] - Occupational Stress Questionnaire Answer Date [...] place to sleep or slept in a mcfp (including now)? No 02/27/2023 Sex and Gender Information Value Date Recorded Sex Assigned at Not on file Legal Sex Male 6:42 PM EDT Gender Identity Not on file Sexual Orientation Not on file Last Filed Vital Signs Vital Sign Reading Time Taken Comments Blood Pressure 118/76 12/10/2024 10:08 AM EDT Pulse 75 12/10/2024 10:08 AM EDT Temperature 36.7 C (98 F) 12/10/2024 10:08 AM EDT Respiratory Rate - - Oxygen Saturation 97% 12/10/2024 10:08 AM EDT Inhaled Oxygen Concentration - - Weight 173 kg (382 lb) 12/14/2024 11:10 AM EDT Height 182.9 cm (6') 12/14/2024 11:10 AM EDT Body Mass Index 51.81 12/14/2024 11:10 AM EDT Plan of Treatment Upcoming Encounters Date Type Department Care Team (Late st Contact Info) Description 02/02/2025 1:00 PM EDT Procedure Visit [facility] [address] [place] [phone] Ilya Saucedo, DPM [address] [place], [place] [phone] 04/08/2025 1:15 PM EDT Office Visit [facility] [address] [place] [phone] Elizabeth Moran DO [address] [place] [address] Health Maintenance Due Date Last Done Comments CT Colonography 1978 Colonoscopy 1978 FIT 1978 FOBT 1978 Sigmoidoscopy 1978 Diabetes: Retinopathy Screening 09/11/2024 09/12/2023, 12/04/2018, 11/03/2018 Influenza Vaccine (#1) 2025 , 04/24/2021, 06/06/2020, Additional history exists Diabetes: Hemoglobin A1C 03/12/2025 025, 09/10/2024, 07/13/2024, Additional history exists Medicare Annual Wellness (AWV) 07/13/2025 0 07/13/2024, 10/03/2023, 10/03/2023, Additional history exists Diabetes: Urine Protein Screening 07/14/2025 07/14/2024, 10/03/2023, 10/04/2022, Additional history exists Colorectal Cancer Screening 04/28/2026 FIT-DNA 04/28/2026 04/28/2023 Procedures Procedure Name Priority Date/Time Associated Diagnosis Comments POCT GLYCOSYLATED HEMOGLOBIN (HGB A1C) Routine 12/10/2024 10:19 AM EDT Type 2 diabetes mellitus with both eyes affected by mild nonproliferative retinopathy without macular edema, with long-term current use of insulin (HCC) MICROALBUMIN / CREATININE URINE RATIO Routine 07/14/2024 10:43 AM EST Type 2 diabetes mellitus with both eyes affected by mild nonproliferative retinopathy without macular edema, with long-term current use of insulin (HCC) DIABETIC RETINOPATHY SCREENING - OU - BOTH EYES Routine 09/12/2023 1:24 PM EDT LAB COLOGUARD COLON CANCER SCREEN Routine 04/28/2023 9:24 AM EST Screen for colon cancer from Last 3 Months or Most Recently Relevant to Health Maintenance Results * POCT glycosylated hemoglobin (Hb A1C) docked device (12/10/2024 10:19 AM EDT) Hemoglobin A1C 6.9 Blood Venous blood specimen / Unknown 12/10/2024 10:19 AM EDT Elizabeth Moran DO POINT OF CARE TEST ENTER/E DIT ORDERABLES Final Result * Microalbumin / creatinine, urine ratio (07/14/2024 10:43 AM EST) CREATININE, RANDOM URINE 215 20 - 320 mg/dL [facility] ALBUMIN, URINE <0.2 See Note: mg/dL [facility] Comment: Reference Range: Reference Range Not established ALBUMIN/CREATININE RATIO, RANDOM URINE NOTE <30 mg/g creat [facility] Comment: NOTE: The urine albumin value is less than 0.2 mg/dL therefore we are unable to calculate excretion and/or creatinine ratio. The ADA defines abnormalities in albumin excretion as follows: Albuminuria Category Result (mg/g creatinine) Normal to Mildly increased <30 Moderately increased 30-299 Severely increased > OR = 300 The ADA recommends that at least two of three specimens collected within a 3-6 month period be abnormal before considering a patient to be within a diagnostic category. Urine Urine specimen obtained by clean catch procedure / Unknown 07/14/2024 10:43 AM EST 07/14/2024 10:43 AM EST Narrative [facility] - 07/15/2024 2:22 PM EST SPLIT 07/13/2024 FROM [id number] Resulting Agency Comment Performing Organization Information Site ID: [id number] Name: [facility] Address: [address] [place] [address], [address] [place] [id number] Director: Freddy Mccullough MD Madison Alvarez EVENT SECURITY OFFICER LAB URINE ORDERABLES Fi nal Result [facility] * (ABNORMAL) Diabetic Retinopathy Screening - OU - Both Eyes (09/12/2023 1:24 PM EDT) Anatomical Region Laterality Modality Head Other us Elizabeth Moran DO OPHTH PHOTOGRAPHY Final Re sult * Cologuard® colon cancer screening (04/28/2023 9:24 AM EST) NONINV COLON CA DNA+OCC BLD SCRN STL-IMP Negative Negative 05/06/2023 8:19 PM EST [facility] (CLIA #:[id number]) Comment: NEGATIVE TEST RESULT. A negative Cologuard result indicates a low likelihood that a colorectal cancer (CRC) or advanced adenoma (adenomatous polyps with more advanced pre-malignant features) is present. The chance that a person with a negative Cologuard test has a colorectal cancer is less than 1 in 1500 (negative predictive value >99.9%) or has an advanced adenoma is less than 5.3% (negative predictive value 94.7%). These data are based on a prospective cross-sectional study of 10,000 individuals at average risk for colorectal cancer who were screened with both Cologuard and colonoscopy. (Karol Lopez al, N Engl J Med 2014;370(14):9541-2021) The normal value (reference range) for this assay is negative. COLOGUARD RE-SCREENING RECOMMENDATION: Periodic colorectal cancer screening is an important part of preventive healthcare for asymptomatic individuals at average risk for colorectal cancer. Following a negative Cologuard result, the [employer] [employer] and U.S. Multi-Society Task Force screening guidelines recommend a Cologuard re-screening interval of 3 years. References: [employer] [employer] Guideline for Colorectal Cancer Screening: https://www.cancer.org/cancer/nqhlm-jtqtnr-jnzjln/wutxajebp-iwwmeavpk-zwdufgu/ac s-rec ommendations.html.; Chandler DK, Mary PERALTA, Tello GOLD, Colorectal Cancer Screening: Recommendations for Physicians and Patients from the U.S. Multi-Society Task Force on Colorectal Cancer Screening , Am J Gastroenterology 2017; 112:1960-0949. TEST DESCRIPTION: Composite algorithmic analysis of stool DNA-biomarkers with hemoglobin immunoassay. Quantitative values of individual biomarkers are not reportable and are not associated with individual biomarker result reference ranges. Cologuard is intended for colorectal cancer screening of adults of either sex, 45 years or older, who are at average-risk for colorectal cancer (CRC). Cologuard has been approved for use by the U.S. FDA. The performance of Cologuard was established in a cross sectional study of average-risk adults aged 50-84. Cologuard performance in patients ages 45 to 49 years was estimated by sub-group analysis of near-age groups. Colonoscopies performed for a positive result may find as the most clinically significant lesion: colorectal cancer [4.0%], advanced adenoma (including sessile serrated polyps greater than or equal to 1cm diameter) [20%] or non- advanced adenoma [31%]; or no colorectal neoplasia [45%]. These estimates are derived from a prospective cross-sectional screening study of 10,000 individuals at average risk for colorectal cancer who were screened with both Cologuard and colonoscopy. (Karol Lopez al, N Engl J Med 2014;370(14):5376-5909.) Cologuard may produce a false negative or false positive result (no colorectal cancer or precancerous polyp present at colonoscopy follow up). A negative Cologuard test result does not guarantee the absence of CRC or advanced adenoma (pre-cancer). The current Cologuard screening interval is every 3 years. ([place] [employer] and U.S. Multi-Society Task Force). Cologuard performance data in a 10,000 patient pivotal study using colonoscopy as the reference method can be accessed at the following location: www.Flytenow/results. Additional description of the Cologuard test process, warnings and precautions can be found at www.cologuard.com. Stool specimen (specimen) 04/28/2023 9:24 AM EST 04/29/2023 4:15 PM EST us Jailyn España EVENT SECURITY OFFICER LAB MOLECULAR DIAGNOSTI CS ORDERABLES Final Result [facility] (CLIA #:[id number]) [address] [place] [address], [place] [phone] from Last 3 Months or Most Recently Relevant to Health Maintenance Insurance [facility] MEDICARE ADVANTAGE MEDICAID [place] Care Teams Final Inspector Balance Wheel Relationship Specialty Start Date End Date Fide Huang MD [address] [place] [address] PCP - General Family Medicine 11/10/24
--- OUTSIDE RECORDS SUMMARY | 2024-12-31 12:14 | XMS_ITS | Encounter Summary ---
Author Organization [facility] Address [address] [place] [address] Care Team Providers Care Senior Marketing Analyst Name Role Phone Fide Huang MD Unavailable [phone] Fide Huang MD Primary Care Provider [phone] Fide Huang MD Unavailable [phone] Fide Huang MD Primary Care Provider [phone] Encounter Details Date Type Department Care Team (Late st Contact Info) Description 07/06/2024 Abstract [facility] [address] [place] [address] Elizabeth Moran, DO [address] [address] Social History Tobacco Use Types Packs/Day Years [...] How often do you attend chur or mandaen services? Patient declined 02/27/2023 Do you belong to any clubs o r organizations such as jain groups, unions, fraternal or athletic groups, or [...] Date Recorded Patient Health Questionnaire-2 Score 0 06/11/2024 [facility] of Occupat ional Health - Occupational Stress [...] place to sleep or slept in a prison (including now)? No 02/27/2023 Sex and Gender Information Value Date Recorded Sex Assigned at Not on file Legal Sex Male 6:42 PM EDT Gender Identity Not on file Sexual Orientation Not on file documented as of this encounter Plan of Treatment Upcoming Encounters Date Type Department Care Team (Late st Contact Info) Description 02/02/2025 1:00 PM EDT Procedure Visit [facility] [address] [place] [address] Ilya Saucedo, DPM [address] [place] [address] 04/08/2025 1:15 PM EDT Office Visit [facility] [address] [place] [address] Elizabeth Moran, [address] [place] [address] documented as of this encounter Visit Diagnoses Not on filedocumented in this encounter Additional Health Concerns Assessment Noted Time PHQ-9 Depression Total Score: 2 04/19/20 24 10:00 AM EDT documented as of this encounter Care Teams Senior Marketing Analyst Relationship Specialty Start Date End Date Fide Huang MD [address] [facility] [place] [address] [facility] 07/17/22 08/20/24 Fide Huang MD [address] [place] [address] PCP - General Family Medicine 10/22/22 11/09/24 Fide Huang MD [address] [facility] [address] [place], [place] [id number] PCP - [facility] 06/16/24 08/13/24 Fide Huang MD [address] [facility] [place] [address] PCP - General Family Medicine 11/10/24 documented as of this encounter
--- OUTSIDE RECORDS SUMMARY | 2024-12-31 12:14 | XMS_ITS | Encounter Summary ---
Author Organization [facility] Address [address] [place] [address] Care Team Providers Care Mine Environmental Engineer Name Role Phone Fide Huang MD Primary Care Provider Reason for Visit * Reason Onset Date Comments DM Shoes 12/30/2024 Likes Shoes Ca nc Check Encounter Details Date Type Department Care Team (Late st Contact Info) Description 12/30/2024 Telephone [facility] [address] [place] [address] Ilya Saucedo, DPM [address] [place], [place] [id number] DM Shoes (Likes Shoes Canc Check) Social History Tobacco Use Types Packs/Day Years [...] How often do you attend chur or druze services? Patient declined 02/27/2023 Do you belong to any clubs o r organizations such as mandaeism groups, unions, fraternal or athletic groups, or [...] Recorded Patient Health Questionnaire-2 Score 0 12/10/2024 [facility] - Occupational Stress Questionnaire Answer [...] place to sleep or slept in a longterm (including now)? No 02/27/2023 Sex and Gender Information Value Date Recorded Sex Assigned at Not on file Legal Sex Male 6:42 PM EDT Gender Identity Not on file Sexual Orientation Not on file documented as of this encounter Miscellaneous Notes * Telephone Encounter - Cristobal Hayes - 12/30/2024 12:35 PM EDT Pt called to cancel his three week shoe check as he likes his shoes so appt is not needed. documented in this encounter Plan of Treatment Upcoming Encounters Date Type Department Care Team (Late st Contact Info) Description 02/02/2025 1:00 PM EDT Procedure Visit [facility] [address] [place] [address] Ilya Saucedo DPM [address] [place] [id number] 04/08/2025 1:15 PM EDT Office Visit [facility] [address] [place] [address] Elizabeth Moran, DO [address] [place] [address] documented as of this encounter Visit Diagnoses Not on filedocumented in this encounter Additional Health Concerns Assessment Noted Time PHQ-9 Depression Total Score: 2 10/03/19 24 10:00 AM EDT documented as of this encounter Care Teams Mine Environmental Engineer Relationship Specialty Start Date End Date Fide Huang MD [address] [place] [address] PCP - General Family Medicine 11/10/24 documented as of this encounter
--- OUTSIDE RECORDS SUMMARY | 2024-12-31 12:14 | XMS_ITS | Encounter Summary ---
Author Organization [facility] Address [address] [place] [address] Care Team Providers Care Manager Floor Name Role Phone Fide Huang MD Primary Care Provider [phone] Fide Huang MD Primary Care Provider [phone] Reason for Visit * Reason Onset Date Comments Med Refill 10/30/2024 Encounter Details Date Type Department Care Team (Late st Contact Info) Description 10/30/2024 Refill [facility] [address] [facility] [address] [place] [address] Elizabeth Moran, DO [address] [facility] [address] [place] [address] Type 2 diabetes mellitus with both eyes affected by mild nonproliferative retinopathy without macular edema, with long-term current use of insulin (HCC) Social History Tobacco Use Types Packs/Day Years [...] How often do you attend chur or pentecostalism services? Patient declined 02/27/2023 Do you belong to any clubs o r organizations such as rastafari groups, unions, fraternal or athletic groups, or [...] Recorded Patient Health Questionnaire-2 Score 0 09/10/2024 [facility] [place] of Occupat ional Health - Occupational Stress [...] place to sleep or slept in a residential (including now)? No 02/27/2023 Sex and Gender Information Value Date Recorded Sex Assigned at Not on file Legal Sex Male 6:42 PM EDT Gender Identity Not on file Sexual Orientation Not on file documented as of this encounter Plan of Treatment Upcoming Encounters Date Type Department Care Team (Late st Contact Info) Description 02/02/2025 1:00 PM EDT Procedure Visit [facility] [address] [place] [address] Ilya Saucedo, DPM [address] [place] [address] 04/08/2025 1:15 PM EDT Office Visit [facility] [address] [place] [address] Elizabeth Moran DO [address] [place] [address] documented as of this encounter Visit Diagnoses Diagnosis Type 2 diabetes mellitus with both eyes affected by mild nonproliferative retinopathy without macular edema, with long-term current use of insulin (HCC) documented in this encounter Additional Health Concerns Assessment Noted Time PHQ-9 Depression Total Score: 2 10/03/19 24 10:00 AM EDT documented as of this encounter Care Teams Manager Floor Relationship Specialty Start Date End Date Fide Huang MD [address] [place] [address] PCP - General Family Medicine 10/22/22 11/09/24 Fide Huang MD [address] [place] [address] PCP - General Family Medicine 11/10/24 documented as of this encounter
--- OUTSIDE RECORDS SUMMARY | 2024-12-31 12:14 | XMS_ITS | Encounter Summary ---
Author Organization [facility] Address [address] [place] [address] Care Team Providers Care Covering Machine Operator Helper Name Role Phone Fide Huang MD Primary Care Provider [phone] Encounter Details Date Type Department Care Team (Late st Contact Info) Description 12/30/2024 Abstract [facility] [address] [place] [address] Ilya Saucedo, DPM [address] [place], [place] [id number] Social History Tobacco Use Types Packs/Day Years [...] How often do you attend chur or religion services? Patient declined 02/27/2023 Do you belong to any clubs o r organizations such as jew groups, unions, fraternal or athletic groups, or [...] Recorded Patient Health Questionnaire-2 Score 0 12/10/2024 [facility] of Occupat ional Health - Occupational [...] place to sleep or slept in a correction (including now)? No 02/27/2023 Sex and Gender Information Value Date Recorded Sex Assigned at Not on file Legal Sex Male 6:42 PM EDT Gender Identity Not on file Sexual Orientation Not on file documented as of this encounter Plan of Treatment Upcoming Encounters Date Type Department Care Team (Late st Contact Info) Description 02/02/2025 1:00 PM EDT Procedure Visit [facility] [address] [place] [address] Ilya Saucedo, DPM [address] [place], [place] [id number] 04/08/2025 1:15 PM EDT Office Visit [facility] [address] [place] [address] Elizabeth Moran, DO [address] [place] [address] documented as of this encounter Visit Diagnoses Not on filedocumented in this encounter Additional Health Concerns Assessment Noted Time PHQ-9 Depression Total Score: 2 10/03/19 24 10:00 AM EDT documented as of this encounter Care Teams Covering Machine Operator Helper Relationship Specialty Start Date End Date Fide Huang MD [address] [place] [address] PCP - General Family Medicine 11/10/24 documented as of this encounter
--- OUTSIDE RECORDS SUMMARY | 2024-12-31 12:14 | XMS_ITS | Encounter Summary ---
Author Organization [facility] Address [address] [place] [address] Care Team Providers Care Android Framework Developer Name Role Phone Fide Huang MD Unavailable [phone] Fide Huang MD Primary Care Provider [phone] Fide Huang MD Unavailable [phone] Fide Huang MD Primary Care Provider [phone] Reason for Visit * Reason Comments Med Refill Encounter Details Date Type Department Care Team (Late st Contact Info) Description 04/06/2023 Refill [facility] [address] [place] [address] Jailyn España, COFFEE WEIGHER [address] [address] Social History Tobacco Use Types [...] How often do you attend chur or hinduism services? Patient declined 02/27/2023 Do you belong to any clubs o r organizations such as alevism groups, unions, fraternal or athletic groups, or [...] Recorded Patient Health Questionnaire-2 Score 0 03/06/2023 [facility] of Occupat ional Health - Occupational Stress [...] encounter Miscellaneous Notes * Telephone Encounter - Lady Reyes MA - 04/11/2023 10:06 AM EDT Needs appt before refills can be sent documented in this encounter Plan of Treatment Upcoming Encounters Date Type Department Care Team (Late st Contact Info) Description 02/02/2025 1:00 PM EDT Procedure Visit [facility] [address] [place] [address] Ilya Saucdeo DPAlberto [address] [place] [id number] 04/08/2025 1:15 PM EDT Office Visit [facility] [address] [place] [address] Elizabeth Moran, DO [address] [place] [address] documented as of this encounter Visit Diagnoses Not on filedocumented in this encounter Care Teams Android Framework Developer Relationship Specialty Start Date End Date Fide Huang MD [address] [facility] [place] [address] [facility] 07/17[facility]22 08/20/24 Fide Huang MD [address] [facility] [place], [place] [id number] PCP - General Family Medicine 10/22/22 11/09/24 Fide Huang MD [address] [facility] [place] [address] PCP - [facility] 06/16/24 08/13/24 Fide Huang MD [address] [facility] [place], [place] [id number] PCP - General Family Medicine 11/10/24 documented as of this encounter
[2025-01-01 09:15] LABS: Carbamazepine(Tegretol),S 7.1 ug/mL (4.0-12.0)
== END 2024-12-31 12:10 | disposition home or self-care (01) ==
LOC: LAB 12:11
PROVIDERS: PCP Family Medicine; Visit Provider Psychiatry & Neurology Psychiatry
DX: F31.9 Bipolar disorder, unspecified (principal)
CPT/HCPCS: 36415; 80156